=== PATIENT | female | born 1975 | race Hispanic/Latino ===

== ENCOUNTER 2018-11-11 14:52 | Outpatient (CLI) | payer OTHER ==
--- NOTE | 2018-11-12 10:45 | Magnetic Resonance Report ---
BILATERAL BREAST MR WITHOUT AND WITH GADOLINIUM INDICATION: History of a left papilloma by needle biopsy. Surgical excision was recommended in 2014 but the patient declined. COMPARISONS: [facility] bilateral mammogram and left breast ultrasound from 10/22/2018 TECHNIQUE: Axial 1.0 mm T1 without, axial high-resolution 2.0 mm T2 and axial 1.0 mm dynamic vibrant high-resolution postcontrast T1 fat saturation sequences on a 1.5 Leny magnet. The examination was p erformed with an 8-channel dedicated [employer] breast coil. Post-processing with CAD and subtraction was performed on an [employer] workstation. 19 cc of MultiHance was injected without incident for the con trast portion of the exam. Consent was obtained prior to the administration of the contrast. FINDINGS: RIGHT BREAST: Minimal background parenchymal enhancement. No mass or suspicious enhancement. No suspi cious lymph nodes. LEFT BREAST: Minimal background parenchymal enhancement. Focal nonmass enhancement at 9:00 approximat larissa 4 cm from the nipple measures 4.9 x 4.0 x 2.8 mm. It demonstrates heterogeneous enhancement with mixed kinetics, 107% peak enhancement and 27% type III washout. No mass or suspicious enhancement at 3:00 to correlate with 2 biopsy clips on the mammogram which donna the site of the previously biopsied papilloma. No mass and no other suspicious enhancement of the left breast. No suspicious lymph nodes . IMPRESSION: 1. 5 mm focal nonmass enhancement of the left breast at 9:00. Recommend MRI guided needle biopsy. 2. No MRI finding at the site of the previously identified papilloma of the left breast. 3. Negative right breast. 4. No suspicious lymph nodes. BI-RADS Category 4 Suspicious Signer Name: David Domínguez MD Signed: 11/12/2018 10:40 AM Workstation Name: [id number]
== END 2018-11-11 14:53 | disposition home or self-care (01) ==
LOC: SPVIMAG 14:52
PROVIDERS: ATTEND Surgery
DX: D24.2 Benign neoplasm of left breast (principal)
CPT/HCPCS: A9577; C8908; 77049

== ENCOUNTER 2018-12-03 08:35 | Outpatient (CLI) | payer OTHER ==
--- NOTE | 2018-12-03 11:37 | Mammography Report ---
LEFT DIGITAL DIAGNOSTIC CLINICAL: For clip placement after I guided needle biopsy. COMPARISON: 09/22/2018 FINDINGS: A biopsy clip is identified in the inner breast anterior depth slightly above the nipple an d correlates with the site of MRI biopsy. There is a hematoma site measuring approximately 2.7 x 1.9 x 2.0 cm. IMPRESSION: Concordant clip deployment at the MRI biopsy site. Signer Name: David Domínguez MD Signed: 12/03/2018 11:32 AM Workstation Name: [id number]
--- NOTE | 2018-12-03 13:58 | Magnetic Resonance Report ---
LEFT MRI GUIDED NEEDLE CORE BREAST BIOPSY INDICATION: 5 mm focal nonmass enhancement. COMPARISONS: 11/11/2018 TECHNIQUE: Axial 1.0 mm T1 without and axial 1.0 mm dynamic vibrant high-resolution postcontrast T1 f at saturation sequences on a 1.5 Leny magnet. 18.0 cc of MultiHance was injected without incident fo r the contrast portion of the exam. Consent was obtained prior to the administration of the contrast. Lesion targeting was performed with [employer] software. FINDINGS: A timeout was called and the skin was marked. A localization scan was performed and lesions were targ eted. Using 1% lidocaine for superficial anesthesia and 2% lidocaine with epinephrine for deep anesth esia, a 9 gauge vacuum-assisted biopsy was performed with a [employer] vacuum-assisted biopsy device. Sa tisfactory targeting and sampling was confirmed with imaging. Multiple cores were obtained and placed in formalin. The patient tolerated the procedure well and there were no apparent complications. Hemo stasis was achieved with minimal effort. Steri-Strips and a sterile dressing were applied. As procedure mammogram demonstrated concordant clip placement. IMPRESSION: Successful and uncomplicated MRI guided needle core biopsy left breast. BI-RADS category 4 -- Suspicious Signer Name: David Domínguez MD Signed: 12/03/2018 1:53 PM Workstation Name: [id number]
== END 2018-12-03 08:36 | disposition home or self-care (01) ==
LOC: SPVIMAG 08:35
PROVIDERS: ATTEND Surgery
DX: N60.92 Unspecified benign mammary dysplasia of left breast (principal); N60.02 Solitary cyst of left breast; N60.82 Other benign mammary dysplasias of left breast
CPT/HCPCS: 19085; 77065; 88305; A4648; A9577